=== PATIENT | female | born 1960 | race African-American/Black ===

== ENCOUNTER 2016-06-10 20:56 | Emergency (ER) | payer BC ==
--- NOTE | ~2016-06-10 | EKG ---
PATIENT: AYANA SESAY UNIT #: [id number] Ventricular Rate: 82 BPM Atrial Rate: 82 BPM P-R Interval: 152 ms QRS Duration: 76 ms Q-T Interval: 352 ms QTC Calculation(Bezet): 411 ms P [place]: 67 degrees Calculated R [place]: -3 degrees Calculated T [place]: 17 degrees Diagnosis Line: Normal sinus rhythm Diagnosis Line: Normal ECG Diagnosis Line: When compared with ECG of 19-OCT-2015 09:17, Diagnosis Line: No significant change was found Diagnosis Line: Confirmed by SATHISH GUERRERO MD ([id number]) on 06/12/2016 Diagnosis Line: 4:35:46 AM INTERPRETING MD: YOLANDA PUENTE
--- NOTE | ~2016-06-10 | CR72 ---
[facility] A Service of [facility] & [facility] RADIOLOGY TEXT RESULTS PATIENT: AYANA SESAY LOCATION: [facility] : 62 UNIT #: [id number] AGE: [address]: Horace Santos MD SEX: F ORDER DR: [id number] [facility] [address] [facility]. [place], [place] [address] [id number] MR#: [id number] Acc #: [id number] NAME: AYANA SESAY : 1960 SEX: F STUDY DATE/TIME: 06/10/2016 20:57 UNIT: [facility] ROOM: STUDY DESCRIPTION: CR Chest Single View Portable Attending Physician: Horace Santos M.D. Ordering Physician: Horace Santos M.D. Primary Care Physician: Chelle Smith M.D. MEDICAL IMAGING REPORT This report is preliminary unless electronic signature is present EXAM Portable chest 06/10/2016 HISTORY Palpitations, shortness of breath with activity and lightheadedness over the past 3 days. TECHNIQUE Single view chest was obtained and compared with 10/19/2015 FINDINGS A single AP portable view of the chest shows both lungs to be clear. The heart is normal in size. The mediastinal contour is normal. No significant bone abnormalities are seen. IMPRESSION Normal portable chest. Dictated by... Michel Jackson M.D. THIS IS AN ELECTRONICALLY VERIFIED REPORT Michel Jackson M.D. at 06/12/2016 11:02 AM Sachin TD: 06/11/2016 11:33 JOB #: [id number] MEDICAL IMAGING REPORT Page 1 of 1 COPY
[~2016-06-10 20:56] MED LIST: ALBUTEROL17 GM INH; ALPRAZOLAM PO; CELEXA PO; CLARITIN10 MG PO; FLOVENT HFA10.6 GM INH; IBUPROFEN PO; IBUPROFEN400 MG PO; LIPITOR PO; LOSARTAN-HCTZ1 EAC2 PO; MOBIC PO; PRILOSEC PO; TYLENOL #3 PO; XANAX0.5 MG PO
[2016-06-10 21:11] LABS: BASOPHIL# 0.1 X10e3 (0-0.3); BASOPHIL% 0.9 % (0-2.5); EOSINOPHIL# 0.2 X10e3 (0-0.7); EOSINOPHIL% 2.6 % (0.0-7.0); HEMATOCRIT 36.4 % (35.0-45.0); HEMOGLOBIN 11.9 gm/dL (12.0-16.0); LYMPHOCYTE# 3.7 X10e3 (1.0-3.5); LYMPHOCYTE% 41.9 % (17.0-45.0); MEAN CELL VOLUME 74.7 FL (83-96); MEAN CORPUSCULAR HEMOGLOBIN 24.4 PG (28-34); MEAN CORPUSCULAR HGB CONC 32.7 g/dL (30-36); MEAN PLATELET VOLUME 8.1 FL (6.5-11.5); MONOCYTE# 0.6 X10e3 (0-1.0); MONOCYTE% 6.5 % (3.0-12.0); NEUTROPHIL# 4.2 X10e3 (1.5-7.1); NEUTROPHIL% 48.1 % (40-75); PLATELET COUNT 269 X10e3 (140-420); RED BLOOD COUNT 4.86 X10e (3.90-5.30); WHITE BLOOD COUNT 8.8 X10e3 (4.0-10.5)
[2016-06-10 21:15] LABS: DIFF IND NO
[2016-06-10 21:24] LABS: POC - CKMB <1.0 ng/mL (0.0-7.9); POC - TROPONIN <0.05 ng/mL (<=0.05)
[2016-06-10 21:37] LABS: BLOOD UREA NITROGEN 12 mg/dL (9-23); BUN/CREATININE RATIO 17.14; CALCIUM SERUM 9.1 mg/dL (8.4-10.2); CARBON DIOXIDE 26 mmol/L (22-31); CHLORIDE 103 mmol/L (100-111); CREATININE SERUM 0.7 mg/dL (0.6-1.4); GLOM FILT RATE Estimated ABOVE60 mL/min (>60); GLUCOSE FASTING 107 mg/dL (70-110); POTASSIUM 3.9 mmol/L (3.5-5.1); SODIUM 138 mmol/L (135-145)
== END 2016-06-10 22:15 | disposition home or self-care (01) ==
LOC: CED 20:56
PROVIDERS: Emergency Medicine
DX: R00.2 Palpitations (principal); R42 Dizziness and giddiness; J45.909 Unspecified asthma, uncomplicated; I10 Essential (primary) hypertension; Z90.710 Acquired absence of both cervix and uterus; Z98.51 Tubal ligation status
CPT/HCPCS: 36415; 71010; 80048; 82553; 83735; 84443; 84484; 85025; 93005; 99283